=== PATIENT | male | born 1985 | race Caucasian/White ===

== ENCOUNTER 2018-11-25 08:42 | Inpatient (IN) | payer BC ==
[~2018-11-25] VITALS: Ht 172.7 cm; Wt 86.6 kg
--- NOTE | ~2018-11-25 | HC ---
[facility] [place] [place] [address] CONSULTATION Name: ROXANNE ARANDA Room #: REG [facility]#: [id number] Admission: 11/25/18 ������������������ Attend Phys: Discharge: ������������������ Date of : 81 Report #: [id number] THIS REPORT FOR: //name// CC: FAM anna Rodriguez ELECTROPHYSIOLOGY CONSULTATION PREOPERATIVE DIAGNOSIS: AFib. 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 He went ahead his blood pressure checked and was elevated at 200. He then was brought in by EMS, was found to be in atrial fibrillation with rapid ventricular response. They placed him on some rate control medications. Currently, he is chest pain free. He denies any shortness of breath. PAST MEDICAL HISTORY: None. SOCIAL HISTORY: Does not smoke. FAMILY HISTORY: Noncontributory. ALLERGIES: None. MEDICATIONS: None. REVIEW OF SYSTEMS: A 12-point review of systems was performed and was negative and as mentioned above. PHYSICAL EXAMINATION: VITALS: Stable. GENERAL: No acute distress. HEENT: Oropharynx clear. HEART: Irregularly irregular. LUNGS: Clear to auscultation bilaterally. ABDOMEN: Soft, nontender, nondistended. EXTREMITIES: No clubbing, cyanosis, edema. NEUROLOGIC: Cranial nerves II through XII are intact. LABORATORY DATA: Have been reviewed. White count 6.3, hemoglobin 16, and platelets 202. Chemistries: Sodium 142, potassium 3.7, and creatinine 0.9. Troponin is negative. Liver enzymes were within normal limits. UA is normal. Toxicology screen is normal. IMAGING: Chest x-ray shows a normal cardiac silhouette and no evidence of [facility] [address] [place] [address] CONSULTATION Name: ROXANNE ARANDA Freddy [id number] Admission: 11/25/18 ������������������ Attend Phys: Discharge: ������������������ Date of : 81 Report #: [id number] pulmonary edema. ASSESSMENT: New onset atrial fibrillation. PLAN: Given that the patient went into dysrhythmia at around 7:15, we can proceed with trying to chemically cardiovert the patient with flecainide 200 mg x1. If he converts and is stable, then he potentially can go home today. We will obtain an echocardiogram after he chemically cardiovert. We will need to see him in clinic and we will continue to follow. ��������������������������������������������� ���������������������������������������� By: ��������������������������������������������� 1026 1111 Oumar Dupont MD /nt
[2018-11-25 08:43] VITALS: BP 109/76
[2018-11-25 09:08] LABS: ABSOLUTE NEUTROPHILS 3.8 thou/uL (1.4-8.2); BASOPHILS 0.7 % (0.0-2.0); EOSINOPHILS 1.1 % (0.0-3.0); HEMATOCRIT 49.8 % (42.0-52.0); HEMOGLOBIN 16.8 gm/dL (14.0-18.0); LYMPHOCYTES 30.4 % (24.0-44.0); MCH 29.6 pg (26.0-34.0); MCHC 33.8 g/dL (28.0-37.0); MCV 87.8 fL (80.0-100.0); MONOCYTES 7.2 % (1.0-8.0); PLATELET COUNT 202 thou/uL (150-400); POLYS 60.6 % (36.0-66.0); RBC 5.67 mil/uL (4.50-6.00); RDW 12.9 % (10.5-14.5); WBC 6.3 thou/uL (4.0-11.0)
[2018-11-25 09:22] LABS: URINE BILIRUBIN NEGATIVE (Negative); URINE BLOOD NEGATIVE (Negative); URINE CLARITY CLEAR; URINE COLOR YELLOW; URINE GLUCOSE-RANDOM* NEGATIVE (Negative); URINE KETONES TRACE (Negative); URINE LEUKOCYTES NEGATIVE (Negative); URINE NITRITE NEGATIVE (Negative); URINE PROTEIN (DIPSTICK) NEGATIVE (Negative); URINE SPECIFIC GRAVITY <= 1.005 (1.005-1.035); URINE UROBILINOGEN 0.2 E.U./dl (0.2-1.0)
[2018-11-25 09:23] LABS: AMP/METHAMP Negative (Negative); BARBITURATES Negative (Negative); BENZODIAZEPINES Negative (Negative); COCAINE Negative (Negative); METHADONE Negative (Negative); OPIATES Negative (Negative); PCP Negative (Negative)
[2018-11-25 09:49] LABS: ALBUMIN 3.9 g/dL (3.4-5.0); ANION GAP 10 mmol/L (7-16); BUN 10 mg/dL (7-18); CALCIUM 8.8 mg/dL (8.5-10.1); CHLORIDE 106 mmol/L (98-107); CO2 26 mmol/L (21-32); CREATININE 0.9 mg/dL (0.7-1.3); GLUCOSE 121 mg/dL (74-106); MAGNESIUM 2.2 mg/dL (1.8-2.4); POTASSIUM 3.7 mmol/L (3.5-5.1); SGOT 13 U/L (15-37); SGPT 32 U/L (30-65); SODIUM 142 mmol/L (136-145); TOTAL BILIRUBIN 0.5 mg/dL (<0.1-1.0); TOTAL PROTEIN 7.2 g/dL (6.4-8.2); TROPONIN-I <0.06 ng/mL (<0.06)
[2018-11-25 13:07] LABS: HEMATOCRIT 45.5 % (42.0-52.0); HEMOGLOBIN 15.8 gm/dL (14.0-18.0); MCHC 34.8 g/dL (28.0-37.0); MCV 86.1 fL (80.0-100.0); RBC 5.28 mil/uL (4.50-6.00); RDW 12.8 % (10.5-14.5); WBC 9.9 thou/uL (4.0-11.0)
[2018-11-25 13:14] LABS: ANION GAP 8 mmol/L (7-16); BUN 9 mg/dL (7-18); CALCIUM 8.8 mg/dL (8.5-10.1); CHLORIDE 109 mmol/L (98-107); CO2 27 mmol/L (21-32); CREATININE 1.1 mg/dL (0.7-1.3); GLUCOSE 105 mg/dL (74-106); POTASSIUM 3.7 mmol/L (3.5-5.1); SODIUM 144 mmol/L (136-145)
[2018-11-25 13:23] LABS: TROPONIN-I <0.06 ng/mL (<0.06)
[2018-11-25 14:12] VITALS: BP 131/79
--- NOTE | 2018-11-25 14:45 | 2DMMODE ---
[facility] [address] [place] [address] 2 D/M-MODE ECHOCARDIOGRAM Name: ROXANNE ARANDA Freddy Room #: 170-6 ADM IN [facility]#: [id number] ������������� Admission: 11/25/18 ������������� Attend Phys: Terry Robles MD Discharge: ��� ������������� ��� Date of : 81 Date of Service: 11/25/18 1445 �� Report #: [id number] �������� ��������������������������������������������[id number] THIS REPORT FOR: //name// APPROVED REPORT Study performed: 11/25/2018 12:36:19 EXAM: Comprehensive 2D, Doppler, and color-flow Echocardiogram Patient Location: ER Status: routine BSA: 1.99 HR: 75 bpm BP: 138/95 mmHg Rhythm: Patient went bradycardic during exam. 27bpm. Other Information Study Quality: Good Indications New onset of Afib. 2D Dimensions RVDd: 38.30 mm IVSd: 10.07 (7-11mm) LVOT Diam: 22.40 (18-24mm) LVDd: 46.04 mm PWd: 10.69 (7-11mm) Ascending Ao: 26.99 (22-36mm) LVDs: 36.15 (25-40mm) Aortic Root: 29.78 mm Volumes Left Atrial Volume (Systole) Single Plane 4CH: 46.08 mL Single Plane 2CH: 47.71 mL LA ESV Index: 26.00 mL/m2 Aortic Valve AoV Peak Cuate.: 1.22 m/s AO Peak Gr.: 5.99 mmHg LVOT Max P.57 mmHg LVOT Max V: 0.80 m/s REINIER Vmax: 2.58 cm2 Pulmonary Valve PV Peak Cuate.: 0.63 m/s PV Peak Gr.: 1.58 mmHg Tricuspid Valve [facility] [address] [place] [address] 2 D/M-MODE ECHOCARDIOGRAM Name: ROXANNE ARANDA Room #: 170-6 ADM IN [facility]#: [id number] ������������� Admission: 11/25/18 ������������� Attend Phys: Terry Robles MD Discharge: ��� ������������� ��� Date of : 81 Date of Service: 11/25/18 1445 �� Report #: [id number] �������� ��������������������������������������������[id number] TR Peak Cuate.: 2.16 m/s RAP Estimate: 5.00 mmHg TR Peak Gr.: 18.58 mmHg PA Pressure: 24.00 mmHg Left Ventricle The left ventricle is normal size. There is normal left ventricular wall thickness. Left ventricular systolic function is mildly decreased. LVEF is 45-50%. This study is not technically sufficient to allow evaluation of the LV diastolic function. Right Ventricle The right ventricle is normal size. The right ventricular systolic function is normal. Atria The left atrium size is normal. The right atrium size is normal. Aortic Valve The aortic valve is normal in structure. No aortic regurgitation is present. There is no aortic valvular stenosis. Mitral Valve The mitral valve is normal in structure. Trace to mild mitral regurgitation. Tricuspid Valve The tricuspid valve is normal in structure. Mild tricuspid regurgitation. Estimated PAP is 30mmHg. Pulmonic Valve The pulmonary valve is normal in structure. Mild pulmonic regurgitation. Great Vessels The aortic root is normal in size. The ascending aorta is normal in size. IVC is normal in size and collapses >50% with inspiration. Pericardium There is no pericardial effusion. <Conclusion> The left ventricle is normal size. LVEF is 45-50%. The aortic valve is normal in structure. [facility] [place] [address] 2 D/M-MODE ECHOCARDIOGRAM Name: ROXANNE ARANDA Freddy Room #: 170-6 ADM IN .R.#: [id number] ������������� Admission: 11/25/18 ������������� Attend Phys: Terry Robles MD Discharge: ��� ������������� ��� Date of : 81 Date of Service: 11/25/18 1445 �� Report #: [id number] �������� ��������������������������������������������[id number] The mitral valve is normal in structure. Trace to mild mitral regurgitation. The tricuspid valve is normal in structure. Mild tricuspid regurgitation. Estimated PAP is 30mmHg. The pulmonary valve is normal in structure. Mild pulmonic regurgitation. There is no pericardial effusion. ��������������������������������������������� <ELECTRONICALLY SIGNED> ���������������������������������������� By: Spenser Zimmerman MD ��������������������������������������������� 11/25/18 1445 1445 1445 Spenser Zimmerman MD /INF
[2018-11-25 15:08] VITALS: BP 124/71
--- NOTE | 2018-11-25 15:11 | NUR ---
CATARINO RN IS IN AN ISOLATION ROOM AND WILL CALL ME RIGHT BACK
[2018-11-25 15:45] VITALS: BP 124/67
--- NOTE | 2018-11-25 16:13 | NUR ---
PT ARRIVED THE UNIT AT APPROX 1550 BY ER STAFF ACCOMPANIED BY SPOUSE WITH BELONGINGS. PT ALERT AND ORIENTED, VSS, DENIES PAIN, DENIES SOB/CP. PT UP SBA, TOLERATING WELL. SR ON MONITOR. ADMIT STRIP PRINTED AND DOCUMENTED. ADMISSION COMPLETED. CONSENTS SIGNED. DISCUSSED WITH PT REGARDING PT SAFETY TELEMETRY INTERFERENCE SHEET- COMMUNICATES UNDERSTANDING. PT DENIES CONCERNS AT THIS TIME. WILL IMPLEMENT FURHTER ORDERS. CONTINUING TO MONITOR.
[2018-11-25 19:45] VITALS: BP 124/67
--- NOTE | 2018-11-25 19:48 | NUR ---
PT CONTINUES TO BE ALERT AND ORIENTED, VSS, SR ON MONITOR, NO C/O. DENIES PAIN. SPOUSE AT BEDSIDE. WILL CONT TO MONITOR
[2018-11-25 21:03] VITALS: BP 121/68
[2018-11-26 03:35] VITALS: BP 124/72
[2018-11-26 04:23] LABS: CALCIUM 8.7 mg/dL (8.5-10.1); CREATININE 0.9 mg/dL (0.7-1.3); MAGNESIUM 1.9 mg/dL (1.8-2.4); POTASSIUM 4.3 mmol/L (3.5-5.1)
--- NOTE | 2018-11-26 05:21 | NUR ---
PATIENT ALERT AND ORIENTED X4, HEADACHE CONTROLLED WITH MEDICATION. SINUS RHYTHM ON BEADING SAWYER. UP INDEPENDENTLY. NO SIGNIFICANT CARDIAC EVENTS OVERNIGHT. NO SIGNS OF ACUTE DISTRESS NOTED AT THIS TIME. WILL CONTINUE TO MONITOR.
[2018-11-26] MEDS ORDERED: TOPROL XL25 MG PO (09:10)
[2018-11-26] MEDS ORDERED: ASA81BEC PO (09:11)
[2018-11-26 09:14] VITALS: BP 126/61
[2018-11-26 12:38] VITALS: BP 126/61
--- NOTE | 2018-11-26 13:27 | NUR ---
ASSESSMENT CHARTED - MEDS PER JUL STARTED ON TOPROL AND ASA THIS AM ORDERED. UP AD JOSEPHINE IN ROOM - STEADY ON FEET. NO CO'S OF PAIN OR NAUSEA. THANH DIET AND FLUIDS. PT DISCHARGED - TO GO TO CARDIOLOGY OFFICE TO HAVE MONITOR PLACED PRIOR TO GOING HOME. IV AND MONITOR REMOVED. PT LEAVING UNIT VIA WHEELCHAIR - HOME VIA PVT VEHICLE ACCOMAPNIED BY .
--- NOTE | 2018-11-27 17:31 | EKG ---
[place] [address] [facility] [place] [address] ELECTROCARDIOGRAM REPORT Name: ARANDAROXANNE Andrade Room #: 204-P [facility] IN M.R.#: [id number] ������������������ Admission: 11/25/18 ������������������ Attend Phys: Terry Robles MD Discharge: 11/26/18 ������������������ Date of : 81 Report #: [id number] ����������������������������������������������������������������� [id number] THIS REPORT FOR: //name// [facility] ED Test Date: 2018-11-25 Test Time: 08:51:09 Pat Name: ROXANNE ARANDA Department: Room: 204 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1985 Requested By: Elsa Rodriguez Order Number: [id number] MD: Spenser Zimmerman Measurements Intervals [place] Rate: 165 P: GA: QRS: 67 QRSD: 79 T: -50 QT: 270 QTc: 448 Interpretive Statements Atrial fibrillation rapid ventricular response Probable LVH with secondary repol abnrm No previous ECG available for comparison Electronically Signed On 11-27-2018 17:31:31 CDT by Spenser Zimmerman [email or web address] ��������������������������������������������� <ELECTRONICALLY SIGNED> ���������������������������������������� By: Spenser Zimmerman MD ��������������������������������������������� 11/27/18 1731 0851 Spenser Zimmerman MD /BALTA
--- NOTE | 2018-11-29 17:50 | EKG ---
[place] [address] [address] [employer] [address] [facility] [place] [address] ELECTROCARDIOGRAM REPORT Name: ROXANNE ARANDA Room #: 204-[facility] IN ..#: [id number] ������������������ Admission: 11/25/18 ������������������ Attend Phys: Terry Robles MD Discharge: 11/26/18 ������������������ Date of : 81 Report #: [id number] ����������������������������������������������������������������� [id number] THIS REPORT FOR: //name// [facility] ED Test Date: 2018-11-25 Test Time: 12:58:15 Pat Name: ROXANNE ARANDA Department: Room: [facility] Gender: 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1985 Requested By: Juan C Swain Order Number: [id number] MD: Matthew Gillespie Measurements Intervals [place] Rate: 56 P: 41 SD: 192 QRS: 58 QRSD: 82 T: 14 QT: 404 QTc: 390 Interpretive Statements Sinus rhythm Possible anteroseptal infarct, old No previous ECG available for comparison Electronically Signed On 11-29-2018 17:50:15 CDT by Matthew Gillespie [email or web address] ��������������������������������������������� <ELECTRONICALLY SIGNED> ���������������������������������������� By: Matthew Gillespie MD, [facility] ��������������������������������������������� 11/29/18 1750 1258 1258 Matthew Gillespie MD, FACC /EPI
--- NOTE | 2018-11-29 17:57 | EKG ---
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 : 1985 Requested By: Oumar Dupont Order Number: [id number] MD: Matthew Gillespie Measurements Intervals [place] Rate: 57 P: 26 AL: 177 QRS: 34 QRSD: 78 T: 16 QT: 406 QTc: 396 Interpretive Statements Sinus rhythm No significant abnormality No previous ECG available for comparison Electronically Signed On 11-29-2018 17:57:15 CDT by Matthew Gillespie [email or web address] ��������������������������������������������� <ELECTRONICALLY SIGNED> ���������������������������������������� By: Matthew Gillespie MD, [facility] ��������������������������������������������� 11/29/18 1757 D: [id number] 0 Matthew Gillespie MD, FACC /EPI
== END 2018-11-26 14:10 | disposition home or self-care (01) | DRG 310 ==
LOC: ER 08:42 → 2N 13:15 → EROBS 13:15 → 2N 15:08 → ENTRNSPT 11-26 13:26 → EDTRNSPTSTS 11-26 13:42 → 2N 11-26 14:10
PROVIDERS: Emergency Medicine; Nurse Practitioner; Student in an Organized Health Care Education/Training Program; ADMIT Hospitalist
DX: I48.91 Unspecified atrial fibrillation (principal); I50.9 Heart failure, unspecified; Z83.2 Family history of diseases of the blood and blood-forming organs and certain disorders involving the immune mechanism; Z79.82 Long term (current) use of aspirin; Z79.899 Other long term (current) drug therapy
CPT/HCPCS: 10081

== ENCOUNTER → 2018-12-15 | Outpatient (CLI) | payer BC ==
[~2018-12-15] MED LIST: ASA81BEC PO; TOPROL XL25 MG PO
[2018-12-15 09:20] LABS: HEMATOCRIT 47.9 % (42.0-52.0); HEMOGLOBIN 16.3 gm/dL (14.0-18.0); MCH 29.2 pg (26.0-34.0); MCV 85.9 fL (80.0-100.0); RBC 5.58 mil/uL (4.50-6.00); RDW 12.8 % (10.5-14.5); WBC 6.3 thou/uL (4.0-11.0)
[2018-12-15 09:36] LABS: ALBUMIN 4.3 g/dL (3.4-5.0); CALCIUM 9.1 mg/dL (8.5-10.1); POTASSIUM 4.3 mmol/L (3.5-5.1); TOTAL BILIRUBIN 0.5 mg/dL (<0.1-1.0); TOTAL PROTEIN 7.6 g/dL (6.4-8.2)
== END ==
LOC: CAT 08:55
PROVIDERS: Internal Medicine Cardiovascular Disease
DX: I48.91 Unspecified atrial fibrillation (principal); R55 Syncope and collapse; R00.1 Bradycardia, unspecified

== ENCOUNTER → 2019-01-05 | Outpatient (CLI) | payer BC ==
[~2019-01-05] VITALS: Ht 172.7 cm; Wt 82.6 kg
[~2019-01-05] MED LIST changes: +PRADAXA150 MG PO; +PRADAXA75 MG PO
[2019-01-05 07:11] VITALS: BP 125/82
--- NOTE | 2019-01-05 08:45 | TEE ---
[facility] [address] [employer] [place] [address] TRANSESOPHAGEAL ECHOCARDIOGRAM Name: ROXANNE ARANDA Room #: REG [facility]#: [id number] ������������� Admission: 01/05/19 ������������� Attend Phys: [facility] Discharge: ��� ������������� ��� Date of : 81 Date of Service: 01/05/19 0845 �� Report #: [id number] �������� ��������������������������������������������[id number] THIS REPORT FOR: //name// APPROVED REPORT Study performed: 01/05/2019 07:44:09 EXAM: Comprehensive 2D, Doppler, and color-flow Echocardiogram Patient Location: CVL Status: routine BSA: 1.96 HR: 44 bpm BP: 129/69 mmHg Rhythm: NSR/katharine Other Information Study Quality: Good Indications Atrial Fibrillation Procedure After obtaining informed consent, patient underwent transesophageal echo in the Grades 1 6 [employer]. Type of Sedation : Conscious Sedation Sedation was administered by Meghann Raymundo RN. Sedation was achieved intravenously with: Versed (8) Fentanyl (100) Transesophageal probe was inserted and advanced into esophagus without difficulty by Matthew Gillespie MD. Echo enhancement indication: R/O Septal defect. Echo enhancement agent administered: Agitated Saline The PONCHO was performed without complications. Throughout the procedure, the blood pressure, pulse oximetry, cardiac rhythm, and rate were monitored. The patient tolerated the procedure without adverse effects. Recovery from conscious sedation was uneventful and vital signs were stable. Left Ventricle The left ventricle is normal size. There is normal LV segmental wall motion. There is normal left ventricular wall thickness. Left ventricular systolic function is normal. LVEF is 55%. [facility] [address] [place] [address] TRANSESOPHAGEAL ECHOCARDIOGRAM Name: ARANDAROXANNE Freddy Room #: REG VICKY Pate.#: [id number] ������������� Admission: 01/05/19 ������������� Attend Phys: [facility] Discharge: ��� ������������� ��� Date of : 81 Date of Service: 01/05/19 0845 �� Report #: [id number] �������� ��������������������������������������������[id number] Right Ventricle The right ventricle is normal size. The right ventricular systolic function is normal. Atria The left atrium size is normal. No thrombus is visualized in the left atrium or appendage. No shunting noted by contrast bubble injection. The right atrium size is normal. Aortic Valve The aortic valve is normal in structure. No aortic regurgitation is present. There is no aortic valvular stenosis. Mitral Valve The mitral valve is normal in structure. Trace mitral regurgitation. Tricuspid Valve The tricuspid valve is normal in structure. Mild tricuspid regurgitation. Pulmonic Valve The pulmonary valve is normal in structure. Trace pulmonic regurgitation. Great Vessels The aortic root is normal in size. The ascending aorta is normal in size. IVC is normal in size and collapses >50% with inspiration. Pericardium There is no pericardial effusion. <Conclusion> Left ventricular systolic function is normal. There is normal LV segmental wall motion. LVEF is 55%. No shunting noted by contrast bubble injection. Both atria are normal No thrombus is visualized in the left atrium or appendage. Structural valvular disease was absent. No significant regurgitant or stenotic lesions There is no pericardial effusion. [facility] [address] [place] [address] TRANSESOPHAGEAL ECHOCARDIOGRAM Name: ROXANNE ARANDA Room #: REG Leta#: [id number] ������������� Admission: 01/05/19 ������������� Attend Phys: Oumar [facility] Discharge: ��� ������������� ��� Date of : 81 Date of Service: 01/05/19844 �� Report #: [id number] �������� ��������������������������������������������[id number] Normal PONCHO with Doppler ��������������������������������������������� <ELECTRONICALLY SIGNED> ���������������������������������������� By: Matthew Gillespie MD, [facility] ��������������������������������������������� 01/05/19844 4 4 Matthew Gillespie MD, [facility] /INF
== END | disposition home or self-care (01) ==
LOC: CATH 06:35
DX: I08.1 Rheumatic disorders of both mitral and tricuspid valves (principal); I48.91 Unspecified atrial fibrillation; Z79.01 Long term (current) use of anticoagulants; Z79.899 Other long term (current) drug therapy; Z98.890 Other specified postprocedural states

== ENCOUNTER 2019-01-07 06:18 | Observation (INO) | payer BC ==
[~2019-01-07] VITALS: Ht 172.7 cm; Wt 82.6 kg
--- NOTE | ~2019-01-07 | D ---
[facility] [place] [address] DISCHARGE SUMMARY Name: ROXANNE ARANDA Room #: 213-P [facility]..#: [id number] Admission: 01/07/19 Attend Phys: Oumar Dupont MD Discharge: Date of : 81 Report #: [id number] THIS REPORT FOR: //name// CC: HAL physician/PCP Oumar Dupont DISCHARGE DIAGNOSIS: Paroxysmal atrial fibrillation. PROCEDURES PERFORMED: AFib ablation. HISTORY OF PRESENT ILLNESS: The patient is a 33-year-old recently admitted with new onset paroxysmal atrial fibrillation. He is here for an ablation. The patient underwent successful AFib ablation with isolation of the 4 pulmonary veins. EP study with isoproterenol was performed with no other inducible arrhythmias noted. HOSPITAL COURSE: The patient was monitored in the CCU overnight. He did well without any issues. On the day of discharge, he denied any chest pain, fevers, chills, shortness of breath or groin issues. On telemetry, he remained in sinus rhythm. PHYSICAL EXAMINATION: GENERAL: No acute distress. HEART: Regular rate and rhythm. No murmurs, rubs or gallops. LUNGS: Clear to auscultation bilaterally. ABDOMEN: Soft, nontender. Groins bilaterally showed no significant bruising or hematoma. As such, he was deemed stable for discharge home. He will go home on Pradaxa 150 b.i.d. We will stop his metoprolol as he has symptoms of symptomatic bradycardia. He will not be placed on antiarrhythmics also for this reason. Discharge instructions were reviewed and he will follow up with my nurse practitioner in 2 weeks and see me in 3 months. By: 0756 0834 Oumar Dupont MD /nt
--- NOTE | ~2019-01-07 | P ---
[place] [address] PROCEDURE REPORT Name: ROXANNE ARANDA [id number] Admission: 01/07/19 Attend Phys: Oumar Dupont MD Discharge: Date of : 81 Report #: [id number] THIS REPORT FOR: //name// CC: [facility] physician/PCP Oumar Dupont PREOPERATIVE DIAGNOSES: 1. Paroxysmal atrial fibrillation. 2. Prior vasovagal reactions. PROCEDURES PERFORMED: 1. Atrial fibrillation ablation, CPT code 87536. 2. Program stimulation and pacing after IV drug infusion, CPT code 57039. 3. 3D mapping, CPT code 19128. 4. Intracardiac echo, CPT code 37068. HISTORY: The patient is a 33-year-old who presented to the hospital with new onset atrial fibrillation. The patient was chemically cardioverted with flecainide therapy. Approximately 30 minutes later, he had a progressive bradycardic episode with asystole consistent with a vasovagal reaction. He has had continued atrial fibrillation despite medication therapy and is here for an AFib ablation. ANESTHESIA: The patient underwent general anesthesia with no anesthesia related complications. DESCRIPTION OF PROCEDURE: The patient underwent informed consent. We discussed the details of the procedure including the risks, which include but not limited to bleeding, vascular damage, cardiac perforation as well as stroke and CO. He understood these risks and is willing to proceed. The patient was brought to the EP laboratory in fasting and sedated state and prepped and draped in a sterile fashion. I obtained access to the right femoral vein x 3 and the left femoral vein x 1. In the right femoral vein, I placed an 8, 9 and 9-[place] short sheath and in the left femoral vein, I placed a 5-[place] short sheath all using the modified Seldinger technique. Via the left femoral vein, I placed a 5-[place] quadripolar catheter for right ventricular pacing. I usually do not do this, but given his prior vagal reactions, I wanted to be prepared with backup pacing. Via the right-sided sheaths, I placed an ICE catheter and a decapolar catheter easily in the coronary sinus. Next, I performed ventricular pacing and there was both midline and decremental VA conduction; therefore, nothing to suggest an accessory pathway. As such, the patient was systemically heparinized for transseptal procedure. Pre-ablation, the patient was in sinus rhythm with sinus cycle length of 690 milliseconds, DC interval 145 milliseconds, QRS duration 80 milliseconds, QT interval 365 milliseconds. Of note, his transseptal was somewhat challenging. He had a very small left atrium that was "pancake" shaped. He had a very flat left atrium and [address] [place] [address] PROCEDURE REPORT Name: ROXANNE ARANDA Room #: 213-P [facility] IRINA [place]#: [id number] Admission: 01/07/19 Attend Phys: Oumar Dupont MD Discharge: Date of : 81 Report #: [id number] he had a very aneurysmal interatrial septum. There was no evidence of PFO on intracardiac ultrasound. I made my initial attempted transseptal and got to anterior and inferior location on the septum. However due to the aneurysmal septum, I was very close to the left vein ostia. Therefore, I did not push very hard with the Holmes needle. I came on with the Holmes needle was in the left atrium and advanced a guidewire into the left superior pulmonary vein. Again, this was somewhat challenging due to the shape of his atrium and the small size of the left atrium. I was able to advance the SL1 into the left superior pulmonary vein and then I exchanged to the cryo sheath. Crossing the septum with the cryo sheath was somewhat challenging again due to the aneurysmal interatrial septum, but I was able to cross without any issues. Based on his cardiac CT scan, it appeared that he had 2 left and 2 right pulmonary veins. However, on intracardiac ultrasound, the left-sided veins almost appeared to share a common ostium. I therefore started by isolating the left superior pulmonary vein. I performed a 4-minute freeze followed by a 2-minute freeze. The vein was not isolated. I then performed a third freeze for 300 seconds and during this freeze, the vein isolated within 170 seconds. However, as the balloon began to thaw, there was reconnection and I performed a fourth freeze of 180 seconds duration. We had decent temperatures as cold as -40 degrees; however, the vein did not appear to isolate. Therefore, I decided to proceed with isolation of the left inferior pulmonary vein to see if this would isolate the left superior vein. I performed a 4-minute freeze in the left inferior pulmonary vein and this isolated quickly within 25 seconds. I performed a second freeze of 180 seconds duration and then I re-interrogated the left superior pulmonary vein and now this was clearly isolated with evidence of entrance and exit block. Of note, there were large left atrial appendage signals that were not captured with pacing. Therefore, I turned my attention to the right-sided veins. I removed the decapolar catheter from the CS and placed this into the subclavian vessel and performed phrenic nerve pacing. The right superior pulmonary vein isolated during the first freeze within 30 seconds. I froze the vein for a total of 170 seconds as the attempts were -50 degrees. I then turned my attention to the right inferior pulmonary vein. I performed a 4-minute freeze that resulted in isolation within 90 seconds. I performed a second freeze of 180 seconds durations. Next, I removed my cryoballoon from the left atrium and I placed the Lasso catheter and created a detailed voltage map of the pulmonary veins. There was now evidence of wide circumferential ablation of the left and right pulmonary veins and there was clearly entrance and exit block in all veins. As such, a basic EP study was performed. Post-ablation, the patient remained in sinus rhythm. Atrial burst pacing was performed and AV block was noted at 250 milliseconds, atrial ERP was noted at 240 milliseconds at [address] cycle length. There were no jumps nor any AV eliza echoes. Ventricular pacing was performed and VA block was noted at 380 milliseconds and ventricular ERP was noted at 250 milliseconds at a [address] cycle length with both midline and decremental VA conduction. Next, an isoproterenol infusion was initiated at 2 mcg per minute and AV block was noted at 250 milliseconds. Aggressive atrial burst pacing was [address] [place] [address] PROCEDURE REPORT Name: ROXANNE ARANDA Room #: 213-P [facility]#: [id number] Admission: 01/07/19 Attend Phys: Oumar Dupont MD Discharge: Date of : 81 Report #: [id number] performed and I could not induce any atrial fib, atrial flutter, nor any SVT. Atrial ERP was noted at 230 milliseconds at a [address] cycle length again with no jumps and no AV eliza echoes and nothing to suggest a slow pathway. Ventricular pacing was again performed and remained midline and ventricular ERP was noted 240 milliseconds at [address] cycle length. Again, VA conduction was midline and decremental. As such, the procedure was concluded. Using intracardiac ultrasound, I verified that there was no pericardial effusion. The patient received systemic protamine and once ACT was within acceptable range, catheters and sheaths were pulled and hemostasis was obtained. Of note, no right ventricular pacing was required during or after any of his freezes; therefore, we did not really see any vagal type reactions from prior ablation today. CONCLUSIONS: 1. Successful atrial fibrillation ablation with wide circumferential ablation of the pulmonary veins. 2. Normal EP study on and off isoproterenol with no inducible arrhythmias. By: [id number] [id number] Oumar Dupont MD /nt
[~2019-01-07 06:18] MED LIST changes: -PRADAXA150 MG PO
[2019-01-07 06:47] VITALS: BP 125/86
[2019-01-07 07:26] LABS: BASOPHILS 0.4 % (0.0-2.0); EOSINOPHILS 1.1 % (0.0-3.0); HEMATOCRIT 47.8 % (42.0-52.0); HEMOGLOBIN 16.4 gm/dL (14.0-18.0); MCH 29.6 pg (26.0-34.0); MCHC 34.3 g/dL (28.0-37.0); MCV 86.4 fL (80.0-100.0); MONOCYTES 7.2 % (1.0-8.0); PLATELET COUNT 165 thou/uL (150-400); POLYS 61.3 % (36.0-66.0); RBC 5.53 mil/uL (4.50-6.00); RDW 13.7 % (10.5-14.5); WBC 6.5 thou/uL (4.0-11.0)
[2019-01-07 07:33] LABS: CALCIUM 9.4 mg/dL (8.5-10.1); CREATININE 1.1 mg/dL (0.7-1.3); POTASSIUM 3.7 mmol/L (3.5-5.1)
--- NOTE | 2019-01-07 15:19 | NUR ---
PT REPORTS GIVEN TO DEVAUGHN SEXTON AT THIS TIME.
[2019-01-07 15:41] VITALS: BP 83/47; BP 93/56
--- NOTE | 2019-01-07 16:19 | EKG ---
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1985 Requested By: Oumar Dupont Order Number: [id number] MD: Matthew Gillespie Measurements Intervals [place] Rate: 71 P: 14 IN: 153 QRS: 27 QRSD: 82 T: 5 QT: 396 QTc: 431 Interpretive Statements Sinus rhythm No significant abnormality Compared to ECG 11/26/2018 08:51:14 No significant changes Electronically Signed On 01-07-2019 16:19:13 CDT by Matthew Gillespie [email or web address] <ELECTRONICALLY SIGNED> By: Matthew Gillespie MD, [facility] 01/07/19 1619 16 16 Matthew Gillespie MD, [facility] /EPI
[2019-01-07 16:45] VITALS: BP 101/65
--- NOTE | 2019-01-07 17:08 | NUR ---
ASSESSMENT CHARTED - MEDS PER MAR - PT WITH CO'S OF NAUSEA GIVEN 7-UP WITH MOD EFFECT IS NOW TOLERATING JELLO AND PUDDING. PAIN IN GROINS BILAT GIVEN LORTAB. IF PAT CONTINUES WITH CO'S OF NASUEA HE MAY HAVE MORE ZOFRAN AT 1815. GROIN SITES AND VSS POST PROCEDURE. AT THE BEDSIDE. NO RESTING AT THE PRESENT TIME.
[2019-01-07 19:48] VITALS: BP 115/72
[2019-01-08 00:14] VITALS: BP 102/51
--- NOTE | 2019-01-08 02:27 | NUR ---
ASSUMED PT CARE AT 1900 WITH NO SIGN OF DISTRESS NOTED. PT IS IS ALERT AND ORIENTED, FAMILY AT BEDSIDE. PAIN MED ADMINISTERED. ASSESSMENT COMPLETED AND CHARTED. SCHEDULED MEDS ADMINISTERED TO PT. DENIES ANY FURTHER NEEDS AT THIS TIME. PT IS STABLE. TRANSFERRED CARE TO [facility] AT 0200
--- NOTE | 2019-01-08 03:46 | NUR ---
ASSUMED CARE OF PATIENT AT 0200. CONTINUES TO REST THROUGH THE NIGHT. WILL CONTINUE TO MONITOR.
[2019-01-08 04:20] VITALS: BP 105/56
[2019-01-08] MEDS ORDERED: PRADAXA150 MG PO (07:58)
[2019-01-08 08:00] VITALS: BP 123/80
--- NOTE | 2019-01-08 08:25 | NUR ---
ASSUMED CARE OF PT FOR DAY SHIFT, A&0X4, ANXIOUS TO LEAVE, SIGNIFICANT OTHER AT BEDSIDE, EDUCATED, GENTLY, ON FACT WHEN DR'S ORDER D/C IT CAN TAKE 40MIN TO TWO HOURS TO COMPLETE, HE GOT BACK IN BED. CARDIAC MONITORED, SEE INTERVENTIONS, ROOM AIR. ENCOURAGED BOTH TO USE CALL LIGHT FOR ANY NEEDS.
[2019-01-08 10:17] VITALS: BP 123/80
[2019-01-08 10:26] VITALS: BP 123/80
== END 2019-01-08 10:59 | disposition home or self-care (01) ==
LOC: CATH 06:18 → 2N 15:57 → CATH 15:58 → 2N 15:58 → ENTRNSPT 01-08 10:41 → EDTRNSPTSTS 01-08 10:51 → 2N 01-08 10:59
PROVIDERS: ADMIT Internal Medicine Cardiovascular Disease
DX: I48.0 Paroxysmal atrial fibrillation (principal)
CPT/HCPCS: 10081; 62110; 62900; 65020; 65040; 70005